=== PATIENT | female | born 1960 | race Caucasian/White ===

== ENCOUNTER 2017-08-07 22:29 | Inpatient (IN) | payer OTHER ==
[~2017-08-07] VITALS: Ht 175.3 cm; Wt 138.8 kg
[2017-08-07] MEDS ORDERED: ASPI81TA42 PO (22:48)
[2017-08-07] MEDS ORDERED: FLUO-191 PO (22:48)
[2017-08-07] MEDS ORDERED: BENZ0.5T6 PO (22:49)
[2017-08-07] MEDS ORDERED: ZIPR20CA2 PO (22:51)
[2017-08-07] MEDS ORDERED: OXCA300T PO (22:51)
[2017-08-07] MEDS ORDERED: GABA-326 PO (22:51)
[2017-08-07] MEDS ORDERED: ALLO100T PO (22:51)
[2017-08-07 23:32] LABS: BASOPHILS % (AUTO) 0.6 % (0.0-2.0); EOSINOPHILS % (AUTO) 3.1 % (1.0-6.0); HEMATOCRIT 37.1 % (36-46); HEMOGLOBIN 12.7 g/dL (12.0-16.0); LYMPHOCYTES # (AUTO) 1.9 K/uL (1.0-4.8); MEAN CORPUSCULAR HGB CONC 34.3 G/dL (31.0-37.0); MEAN CORPUSCULAR VOLUME 87 fL (80-100); MONOCYTES # (AUTO) 0.5 K/uL (0.1-1.0); MONOCYTES % (AUTO) 7.2 % (2.0-9.0); NEUTROPHILS % (AUTO) 60.1 % (40.0-70.0); RED BLOOD CELL COUNT(AUTO) 4.25 MIL/uL (4.00-5.20); RED CELL DISTRIBUTION WIDTH 13.1 % (11.5-14.5)
[2017-08-07] MEDS ORDERED: ONDANSETRON HCL 4 MG/2 ML VIAL IVP ONE (23:45)
[2017-08-07] MEDS ORDERED: MORPHINE SULFATE 4 MG/ML SYRINGE IVP ONE (23:45)
[2017-08-07 23:49] LABS: ANION GAP 6 mmol/L (8-16); CALCIUM, TOTAL 9.1 mg/dL (8.8-10.5); CARBON DIOXIDE 29 mmol/L (22-29); CHLORIDE 105 mmol/L (98-107); CREATININE 0.82 mg/dL (0.60-1.30); GLOMERULAR FILTR. RATE CALC > 60 mL/min (>60); GLUCOSE,RANDOM 108 mg/dL (70-110); POTASSIUM 3.8 mmol/L (3.5-5.1); SODIUM SERUM 140 mmol/L (136-145); UREA NITROGEN, BLOOD 18 mg/dL (7-18)
[2017-08-07 23:54] LABS: ALANINE AMINOTRANSFERASE 18 U/L (12-78); ALBUMIN 3.4 g/dL (3.4-5.0); ALKALINE PHOSPHATASE 111 U/L (46-116); ASPARTATE AMINOTRANSFERASE 14 U/L (15-37); BILIRUBIN,TOTAL 0.2 mg/dL (0.1-1.0); CREATINE KINASE, TOTAL 74 U/L (26-192); TOTAL PROTEIN, SERUM 7.2 g/dL (6.4-8.2)
[2017-08-08 00:04] LABS: PLATELET COUNT (AUTO) 52 K/uL (150-450)
[2017-08-08 00:05] LABS: PLATELET MORPHOLOGY COMMENT GIANT PLTS PRESENT
[2017-08-08 00:13] LABS: B-TYPE NATRIURETIC PEPTIDE 17 pg/mL (0-100)
[2017-08-08] MEDS ORDERED: HYDROCODONE/ACETAMINOPHEN 5-325 MG TABLET PO PRN (00:15)
[2017-08-08] MEDS ORDERED: MAGNESIUM HYDROXIDE SUSPENSION 30 ML UDCUP PO PRN (00:15)
[2017-08-08] MEDS ORDERED: IPRATROPIUM BROMIDE 0.5 MG/2.5 ML NEB SOLUTION NEB PRN (00:15)
[2017-08-08] MEDS ORDERED: ZOLPIDEM TARTRATE 10 MG TABLET PO PRN (00:15)
[2017-08-08] MEDS ORDERED: MORPHINE SULFATE 2 MG/ML SYRINGE IVP PRN (00:15)
[2017-08-08] MEDS ORDERED: ONDANSETRON HCL 4 MG/2 ML VIAL IVP PRN (00:15)
[2017-08-08] MEDS ORDERED: ACETAMINOPHEN 500 MG TABLET PO ONE (00:30)
[2017-08-08 01:58] VITALS: BP 111/50
[2017-08-08] MEDS ORDERED: PNEUMOCOCCAL VACCINE POLYVALENT 0.5 ML VIAL [PPSV23] IM ONE (03:00)
[2017-08-08 04:48] VITALS: BP 104/52
[2017-08-08] MEDS: NITROGLYCERIN 2% (1 GM=INCH) PACKET TP SCH ×3 (06:00→18:00)
[2017-08-08 07:41] VITALS: BP 120/69
[2017-08-08] MEDS: ACETAMINOPHEN 325 MG TABLET PO PRN ×2 (08:05→12:21)
[2017-08-08] MEDS ORDERED: OXcarbazepine 300 MG TABLET PO SCH (09:00)
[2017-08-08] MEDS ORDERED: ALLOPURINOL 100 MG TABLET PO SCH (09:00)
[2017-08-08] MEDS ORDERED: ASPIRIN 81 MG CHEWABLE TABLET PO SCH (09:00)
[2017-08-08] MEDS ORDERED: PANTOPRAZOLE SODIUM 40 MG/VIAL IVP SCH (09:00)
[2017-08-08] MEDS ORDERED: FLUoxetine HCL 20 MG CAPSULE PO SCH (09:00)
[2017-08-08] MEDS ORDERED: DOCUSATE SODIUM 100 MG CAPSULE PO SCH (09:00)
[2017-08-08 11:11] VITALS: BP 119/64
[2017-08-08 15:40] VITALS: BP 130/76
[2017-08-08] MEDS ORDERED: GABAPENTIN 400 MG CAPSULE PO SCH (21:00)
[2017-08-08] MEDS ORDERED: BENZTROPINE MESYLATE 0.5 MG TABLET PO SCH (21:00)
[2017-08-08] MEDS ORDERED: ZIPRASIDONE HCL 20 MG CAPSULE PO SCH (21:00)
== END 2017-08-08 18:50 | disposition home or self-care (01) | DRG 203 ==
LOC: EMS 22:32 → 5S 08-08 00:55
PROVIDERS: ADMIT Hospitalist; ATTEND Hospitalist
DX: R07.89 Other chest pain (principal); G62.9 Polyneuropathy, unspecified; F31.9 Bipolar disorder, unspecified; M10.9 Gout, unspecified; F41.9 Anxiety disorder, unspecified; E78.00 Pure hypercholesterolemia, unspecified; Z79.82 Long term (current) use of aspirin; Z79.899 Other long term (current) drug therapy; Z90.49 Acquired absence of other specified parts of digestive tract
CPT/HCPCS: 90471; 93005; 93306; C9113; J2270; J2405